=== PATIENT | female | born 1990 | race American Indian/Alaskan Native ===

== ENCOUNTER 2016-07-28 14:07 | Emergency (ER) | payer MEDICAID ==
--- NOTE | 2016-07-28 14:44 | ED PDOC ---
Arrival/HPI - General Chief Complaint: Shortness Of Breath Time Seen by Provider: 07/28/16 14:21 Historian: Patient - History of Present Illness Narrative History of Present Illness (Text): 07/28/16 14:40 26 year old female who denies past medical history presents to the emergency department with a sore throat and pain with swallowing since yesterday. She has had a subjective fever. Denies cough, vomiting, chest pain, shortness of breath, dizziness, leg swelling, or other symptoms. Time/Duration: < week Symptom Onset: Gradual Symptom Course: Unchanged Modifying Factors (Text): None Associated Symptoms (Text): None Past Medical History - Provider Review Nursing Documentation Reviewed: Yes - Psychiatric Hx Psychophysiologic Disorder: No Hx Substance Use: No - Surgical History Hx Section: Yes Family/Social History - Physician Review Nursing Documentation Reviewed: Yes Family/Social History: Unknown Family HX Smoking Status: Never Smoked Hx Alcohol Use: Yes Frequency of alcohol use: Socially Hx Substance Use: No Allergies/Home Meds Allergies/Adverse Reactions: Allergies No Known Allergies Allergy (Verified 07/28/16 14:08) Review of Systems - Physician Review All systems were reviewed & negative as marked: Yes - Review of Systems Constitutional: Fevers (subjective) Eyes: absent: Vision Changes ENT: Sore Throat, Other (ear pain) Respiratory: absent: SOB, Cough Cardiovascular: absent: Chest Pain Gastrointestinal: absent: Abdominal Pain, Vomiting Genitourinary Female: absent: Dysuria, Frequency, Hematuria Musculoskeletal: absent: Back Pain Skin: absent: Rash Neurological: absent: Headache, Dizziness Physical Exam Vital Signs Reviewed: Yes Vital Signs Temp Pulse Resp BP Pulse Ox 07/28/16 14:09 100.0 F H 111 H 18 122/77 95 Temperature: Febrile Blood Pressure: Normal Pulse: Tachycardic Respiratory Rate: Normal Appearance: Positive for: Well-Appearing, Non-Toxic, Uncomfortable Pain Distress: Mild Mental Status: Positive for: Alert and Oriented X 3 - Systems Exam Head: Present: Atraumatic, Normocephalic Pupils: Present: PERRL Conjunctiva: Present: Normal Ears: Present: Normal, NORMAL TM, Normal Canal. No: Erythema Mouth: Present: Moist Mucous Membranes Pharnyx: Present: Normal, ERYTHEMA, EXUDATE, TONSILS ENLARGED, Other (Bilateral tonsillar erythema with exudate). No: Peritonsilar Swelling, Uvular Deviation, Muffled/Hoarse Voice, Strider, Soft Palate/Uvular Edema Neck: Present: Normal Range of Motion, Other (b/L shoddy anterior adenopathy) Respiratory/Chest: Present: Clear to Auscultation, Good Air Exchange. No: Respiratory Distress, Accessory Muscle Use Cardiovascular: Present: Regular Rate and Rhythm, Normal S1, S2. No: Murmurs Abdomen: Present: Normal Bowel Sounds. No: Tenderness, Distention, Peritoneal Signs Back: Present: Normal Inspection Upper Extremity: Present: Normal Inspection. No: Cyanosis, Edema Lower Extremity: Present: Normal Inspection. No: Edema Neurological: Present: GCS=15, CN II-XII Intact, Speech Normal Skin: Present: Warm, Dry, Normal Color. No: Rashes Psychiatric: Present: Alert, Oriented x 3, Normal Insight, Normal Concentration Medical Decision Making ED Course and Treatment: Impression: 26 year old female who denies past medical history presents to the emergency department with a sore throat and difficulty swallowing. Differential Diagnosis include but are not limited to: Pharyngitis Plan: -- Tylenol, Amoxicilin, Decadron, Motrin -- Reassess and disposition Progress Notes: 07/28/16 15:04 Exam is very consistent with uncomplicated pharyngitis. No evidence of [employer] with no breathing difficulty. Centor score is 4/4; will treat for strep with amoxicillin, nsaid, and give dose of decadron, given difficulty swallowing - ok for d/c. - Medication Orders Current Medication Orders: Discontinued Medications Acetaminophen (Tylenol 325mg Tab) 975 mg PO STAT STA Stop: 07/28/16 14:39 Amoxicillin (Amoxil 500 Mg Cap) 500 mg PO STAT STA PRN Reason: Protocol Stop: 07/28/16 14:41 Dexamethasone (Decadron) 10 mg PO ONCE STA Stop: 07/28/16 14:42 Ibuprofen (Motrin Oral Susp) 600 mg PO ONCE STA Stop: 07/28/16 14:40 - Scribe Statement The provider has reviewed the documentation as recorded by the [employer] Provider Scribe Attestation: All medical record entries made by the Scribe were at my direction and personally dictated by me. I have reviewed the chart and agree that the record accurately reflects my personal performance of the history, physical exam, medical decision making, and the department course for this patient. I have also personally directed, reviewed, and agree with the discharge instructions and disposition. Disposition/Present on Arrival - Present on Arrival Any Indicators Present on Arrival: No History of DVT/PE: No History of Uncontrolled Diabetes: No Urinary Catheter: No History of Decub. Ulcer: No History Surgical Site Infection Following: None - Disposition Have Diagnosis and Disposition been Completed?: Yes Diagnosis: Pharyngitis Disposition: HOME/ ROUTINE Disposition Time: 15:10 Patient Plan: Discharge Condition: GOOD Discharge Instructions (ExitCare): Tonsillitis (ED) Additional Instructions: Take the medications as prescribed. Tylenol for fever. Drink plenty of fluids. Follow up with your primary care doctor or the medical clinic. Return to the emergency department if any new concerning symptoms. Prescriptions: Amoxicillin [Amoxil 500 mg Cap] 1 cap PO TID #30 cap Ibuprofen [Motrin Tab] 1 tab PO Q8H PRN #20 tab PRN Reason: Pain, Moderate (4-7) Referrals: [facility] [Outside] - Follow up with primary [facility] [place] [Outside] - Follow up with primary
[2016-07-28 15:33] VITALS: RESP 18; O2SAT 98
[2016-07-28 16:02] VITALS: BP 121/72; PULSE 90; TEMP 98.4
== END 2016-07-28 16:01 | disposition home or self-care (01) ==
LOC: ED 14:07
DX: J02.9 Acute pharyngitis, unspecified (principal)
CPT/HCPCS: 99283; J8540